=== PATIENT | female | born 1980 | race Caucasian/White ===

== ENCOUNTER 2020-02-07 20:22 | Emergency (ER) | payer MEDICAID ==
[2020-02-07 20:43] VITALS: BP 98/56; PULSE 106
--- NOTE | 2020-02-07 21:34 | EDM.PDOCBH ---
ED HPI GENERAL MEDICAL PROBLEM - General Chief Complaint: Behavioral/Psych Stated Complaint: TALKING STRANGELY Time Seen by Provider: 02/07/20 20:58 Source of Information: Reports: Patient, Significant Other (Commonlaw ) History Limitations: Reports: Altered Mental Status - History of Present Illness INITIAL COMMENTS - FREE TEXT/NARRATIVE: Ms. Wetzel is a very pleasant 39-year-old woman with a past medical history significant for anxiety, depression, and ADHD, who is now brought to the ED by her boyfriend (common-law of 15 years) for altered mental status. A pparently the patient came home and did not who he was, and started talking about one of her dogs. The patient reported to the triage nurse that she had taken 7 tablets of alprazolam 0.5 mg and alcohol. She tells me that she drove to a bar earlier today, had a couple of drinks, then took 5, not 7, tablets of alprazolam 0.5 mg. She states that she did so because she believes that her previous gastric bypass prevents her from absorbing the alprazolam, therefore she needs to take a larger quantity. She initially stated that she takes these large doses with the blessing of her prescriber, however, the pill bottle was present in the exam room with a label that reads 1 tablet up to 3 times a day as needed. The patient then acknowledged that her prescriber did not tell her to take more than one tablet at a time and that she did so on her own volition. When asked, the patient stated that while she drove to the bar, she was given a ride home by a friend that she met at the bar, and that her car is still at the bar, however, her boyfriend stated that, no, her car is in their driveway. She drove herself home. Both the patient and her boyfriend acknowledge that the patient drinks alcohol to excess in a binge pattern. The patient states that she has been psychiatrically hospitalized only once, when 16 years old, due to a suicide attempt by cutting her wrists. Here in the ED, the patient's initial BP is found to be mildly low at 98/55 with a mild tachycardia of 106 bpm. She is afebrile, saturating 100% on room air. Both the patient and her boyfriend tell me that she has not felt well over the past few days, and that she is spent both Friday and Friday, , in bed. Other than that, however, the patient denies recent fever, chills, sore throat, ear pain, nasal or sinus congestion, cough, dyspnea, chest pain, palpitations, nausea, vomiting, constipation, diarrhea, abdominal pain, urinary symptoms, recent weight gain or weight loss, recent bloody bowel movements or black bowel movements, recent joint aches, headaches, or rashes. The patient's PCP is ISRAEL Goncalves. Her Bariatric Surgeon is Dr. Fahad Sanz. - Related Data Allergies Allergy/AdvReac Type Severity Reaction Status Date / Time hydromorphone Allergy Itching Verified 02/07/20 20:44 Home Meds: Home Meds Cholecalciferol (Vitamin D3) [Vitamin D] 5,000 unit PO Q7D 01/29/16 [History] Cyanocobalamin (Vitamin B12) [Vitamin B12] 1,000 mcg SUBCUT Q21D 01/29/16 [History] Dextroamphetamine/Amphetamine [Adderall] 30 mg PO BID 01/29/16 [History] Ferrous Sulfate [Iron] 325 mg PO DAILY 01/29/16 [History] Sertraline HCl [Zoloft] 100 mg PO BID 01/29/16 [History] traMADol [Ultram] 100 mg PO TID 01/29/16 [History] ALPRAZolam [Xanax] 0.5 mg PO TID PRN 02/07/20 [History] Levothyroxine Sodium [Synthroid] 175 mcg PO DAILY 02/07/20 [History] Past Medical History HEENT History: Reports: Impaired Vision Neurological History: Reports: Brain Injury Psychiatric History: Reports: ADHD, Anxiety, Depression Endocrine/Metabolic History: Reports: Hypothyroidism, Obesity/BMI 30+ Hematologic History: Reports: Anemia, B12 Deficiency (due to gastric bypass) - Infectious Disease History Infectious Disease History: Reports: Chicken Pox - Past Surgical History HEENT Surgical History: Reports: Oral Surgery (dental extractions) GI Surgical History: Reports: Bariatric Procedure (gastric bypass 2002), Cholecystectomy (1999 or 2000) Female Surgical History: Reports: Section (x 2), D&C (x 1), Tubal Ligation Social & Family History - Family History Family Medical History: Noncontributory - Tobacco Use Smoking Status *Q: Current Every Day Smoker Years of Tobacco use: 12 Packs/Tins Daily: 0.5 - Caffeine Use Caffeine Use: Reports: Soda - Alcohol Use Alcohol Use History: Yes Alcohol Use Frequency: Binges - Recreational Drug Use Recreational Drug Use: Yes Drug Use in Last 12 Months: No Recreational Drug Type: Reports: Marijuana/Hashish (last smoked 2014) - Living Situation & Occupation Living situation: Reports: , with Significant Other (Common-law of 15 years) Occupation: Employed (Owns a nail salon) ED ROS GENERAL - Review of Systems Review Of Systems: Comprehensive ROS is negative, except as noted in HPI. Musculoskeletal: Reports: Back Pain (chronic) ED EXAM, BEHAVIORAL HEALTH - Physical Exam Exam: See Below Exam Limited By: No Limitations General Appearance: Alert, WD/WN, No Apparent Distress Eye Exam: Bilateral Eye: EOMI, Normal Inspection, PERRL Ears: Normal External Exam, Hearing Grossly Normal Nose: Normal Inspection Throat/Mouth: Normal Inspection, Normal Lips, Normal Voice, No Airway Compromise Head: Atraumatic, Normocephalic Neck: Normal Inspection, Full Range of Motion Respiratory/Chest: No Respiratory Distress, Lungs Clear, Normal Breath Sounds, No Accessory Muscle Use Cardiovascular: Normal Peripheral Pulses, Regular Rate, Rhythm, No Edema, No Gallop, No JVD, No Murmur, No Rub GI/Abdominal: Normal Bowel Sounds, Soft, Non-Tender, No Organomegaly, No Distention, No Abnormal Bruit, No Mass (Female) Exam: Deferred Rectal (Female) Exam: Deferred Back Exam: Normal Inspection, Full Range of Motion, NT Extremities: Normal Inspection, Normal Range of Motion, No Pedal Edema, Normal Capillary Refill Neurological: Alert, CN II-XII Intact, No Motor/Sensory Deficits, Oriented x 3 Psychiatric: Normal Affect Skin Exam: Warm, Dry, Intact, Normal color, No rash EKG INTERPRETATION EKG Date: 02/07/20 Time: 21:10 Rhythm: NSR Rate (Beats/Min): 99 [place]: Normal P-Wave: Enlarged (LAE) QRS: Normal ST-T: Normal QT: Normal Comparison: NA - No Prior EKG COURSE, BEHAVIORAL HEALTH COMP - Course Vital Signs: Last Vital Signs Temp 36.9 C 02/07/20 20:35 Pulse 106 H 02/07/20 20:35 Resp 16 02/07/20 20:35 BP 98/56 L 02/07/20 20:35 Pulse Ox 100 02/07/20 20:35 Orthostatic Blood Pressure [ 87/60 Standing] Orthostatic Blood Pressure [ 100/64 Supine] Orders, Labs, Meds: Active Orders 24 hr Category Date Time Status EKG Documentation Completion [RC] STAT Care 02/07/20 21:05 Active Orthostatic Vital Signs [RC] STAT Care 02/07/20 21:05 Active Laboratory Tests 02/07/20 02/07/20 02/07/20 Range/Units 21:20 21:20 21:20 WBC 6.34 (3.98-10.04) K/mm3 RBC 4.14 (3.98-5.22) M/mm3 Hgb 9.6 L D (11.2-15.7) gm/dl Hct 32.3 L (34.1-44.9) % MCV 78.0 L D (79.4-94.8) fl MCH 23.2 L (25.6-32.2) pg MCHC 29.7 L (32.2-35.5) g/dl RDW Std Deviation 50.0 H (36.4-46.3) fL Plt Count 423 H D (182-369) K/mm3 MPV 9.7 (9.4-12.3) fl Neutrophils % (Manual) 60 (40-60) % Band Neutrophils % 0 (0-10) % Lymphocytes % (Manual) 36 (20-40) % Atypical Lymphs % 0 % Monocytes % (Manual) 3 (2-10) % Eosinophils % (Manual) 1 (0.7-5.8) % Basophils % (Manual) 0 L (0.1-1.2) Platelet Estimate Adequate Polychromasia Few Hypochromasia 1+ slight Anisocytosis 1+ slight Microcytosis 1+ slight Ovalocytes 1+ slight RBC Morph Comment Not Reportable Sodium 138 (136-145) mEq/L Potassium 3.2 L (3.5-5.1) mEq/L Chloride 104 (98-107) mEq/L Carbon Dioxide 23 (21-32) mEq/L Anion Gap 14.2 (5-15) BUN 11 (7-18) mg/dL Creatinine 0.9 (0.55-1.02) mg/dL Est Cr Clr Drug Dosing 86.84 mL/min Estimated GFR (MDRD) > 60 (>60) mL/min BUN/Creatinine Ratio 12.2 L (14-18) Glucose 110 H (74-106) mg/dL Calcium 8.4 L (8.5-10.1) mg/dL Magnesium 1.8 (1.8-2.4) mg/dl Total Bilirubin 0.2 (0.2-1.0) mg/dL AST 41 H (15-37) U/L ALT 33 (14-59) U/L Alkaline Phosphatase 155 H (46-116) U/L Total Protein 7.6 (6.4-8.2) g/dl Albumin 3.5 (3.4-5.0) g/dl Globulin 4.1 gm/dL Albumin/Globulin Ratio 0.9 L (1-2) TSH 3rd Generation 19.563 H (0.358-3.74) uIU/mL Urine HCG, Qual (NEGATIVE) Salicylates 2.1 L (2.8-20) mg/dL Urine Opiates Screen (BYYLJU=549) Ur Buprenorphine Scrn (CUTOFF=10) Ur Oxycodone Screen (IZJ3SB=362) Urine Methadone Screen (BMKKUJ=588) Ur Propoxyphene Screen (YFSLOQ=628) Acetaminophen 0 L (10-30) ug/mL Ur Barbiturates Screen (WGYUKM=225) Ur Tricyclics Screen (VTVVMT=117) Ur Phencyclidine Scrn (CUTOFF=25) Ur Amphetamine Screen (ORXQBH=491) U Methamphetamines Scrn (YLOZFW=720) U Benzodiazepines Scrn (CBOIVQ=493) U Cocaine Metab Screen (EPHGHH=512) U Marijuana (THC) Screen (CUTOFF=50) Ethyl Alcohol 0.15 (0.00) gm% COVID-19 (ADAM) (NEGATIVE) 02/07/20 02/07/20 02/07/20 Range/Units 22:00 23:06 23:06 WBC (3.98-10.04) K/mm3 RBC (3.98-5.22) M/mm3 Hgb (11.2-15.7) gm/dl Hct (34.1-44.9) % MCV (79.4-94.8) fl MCH (25.6-32.2) pg MCHC (32.2-35.5) g/dl RDW Std Deviation (36.4-46.3) fL Plt Count (182-369) K/mm3 MPV (9.4-12.3) fl Neutrophils % (Manual) (40-60) % Band Neutrophils % (0-10) % Lymphocytes % (Manual) (20-40) % Atypical Lymphs % % Monocytes % (Manual) (2-10) % Eosinophils % (Manual) (0.7-5.8) % Basophils % (Manual) (0.1-1.2) Platelet Estimate Polychromasia Hypochromasia Anisocytosis Microcytosis Ovalocytes RBC Morph Comment Sodium (136-145) mEq/L Potassium (3.5-5.1) mEq/L Chloride (98-107) mEq/L Carbon Dioxide (21-32) mEq/L Anion Gap (5-15) BUN (7-18) mg/dL Creatinine (0.55-1.02) mg/dL Est Cr Clr Drug Dosing mL/min Estimated GFR (MDRD) (>60) mL/min BUN/Creatinine Ratio (14-18) Glucose (74-106) mg/dL Calcium (8.5-10.1) mg/dL Magnesium (1.8-2.4) mg/dl Total Bilirubin (0.2-1.0) mg/dL AST (15-37) U/L ALT (14-59) U/L Alkaline Phosphatase (46-116) U/L Total Protein (6.4-8.2) g/dl Albumin (3.4-5.0) g/dl Globulin gm/dL Albumin/Globulin Ratio (1-2) TSH 3rd Generation (0.358-3.74) uIU/mL Urine HCG, Qual Negative (NEGATIVE) Salicylates (2.8-20) mg/dL Urine Opiates Screen Negative (ISRKPQ=393) Ur Buprenorphine Scrn Negative (CUTOFF=10) Ur Oxycodone Screen Negative (OPH9VM=116) Urine Methadone Screen Negative (DLQWVC=769) Ur Propoxyphene Screen Negative (ZBFBGB=342) Acetaminophen (10-30) ug/mL Ur Barbiturates Screen Negative (BSJHZS=778) Ur Tricyclics Screen Negative (RMRQWC=586) Ur Phencyclidine Scrn Negative (CUTOFF=25) Ur Amphetamine Screen Presumptive positive H (EUIDDM=708) U Methamphetamines Scrn Negative (GWLMZV=760) U Benzodiazepines Scrn Presumptive positive H (ZXRRFW=020) U Cocaine Metab Screen Negative (SMOZMT=725) U Marijuana (THC) Screen Negative (CUTOFF=50) Ethyl Alcohol (0.00) gm% COVID-19 (ADAM) Negative (NEGATIVE) Medications Discontinued Medications Generic Name Dose Route Start Last Admin Trade Name Iliana PRN Reason Stop Dose Admin Lactated Ringer's 1,000 mls @ 999 mls/hr 02/07/20 22:19 02/07/20 22:25 Ringers, Lactated IV 02/07/20 23:19 999 mls/hr .BOLUS ONE Administration Potassium Chloride 40 meq 02/07/20 22:25 02/07/20 22:29 Klor-Con M20 PO 02/07/20 22:26 40 meq ONETIME ONE Administration Medical Clearance: 02/07/20 21:29 As above, the patient apparently drove herself to a bar earlier today, drank for a while, then took either 5 or 7 alprazolam 0.5 mg tablets before driving herself home. Once home, she did not recognize her common-law of 15 years, and was talking about one of her dogs. Here in the ED, patient is found to be mildly hypotensive and slightly tachycardic, and while she states that she does not remember much of what happened earlier today, she is able to provide a fairly thorough past medical and surgical history. Her physical exam is unremarkable. I have ordered a standard psychiatric medical clearance panel, along with orthostatics, and a test for the SARS-CoV-2 virus. 02/07/20 22:18 The patient is not orthostatic. Her CBC is remarkable for a H/H mildly depressed at 9.6 last 32.3, with platelets elevated at 423,000. The remainder of her CBC is unremarkable. Her CMP is remarkable for a potassium mildly depressed at 3.2, a blood glucose slightly elevated 110, and AST slightly elevated at 41 with an ALT normal at 33, and an alkaline phosphatase mildly elevated at 155, with the remainder of her CMP being unremarkable. Her magnesium level is within normal limits at 1.8. Her TSH is substantially elevated at 19.563. Her acetaminophen level is 0. Her salicylate level is within normal limits at 2.1. Her EtOH level is elevated at 0.15. The patient has not yet provided a urine sample for the urine drug screen and urine test. Her test for the SARS-CoV-2 virus has not yet resulted. Although the patient is not orthostatic, I believe she may benefit from a liter of IV fluid anyway. I have ordered 1 L of LR. I have also ordered 40 mEq of oral KCl. 02/07/20 23:22 The test for the SARS-CoV-2 virus has returned negative. 02/07/20 23:53 The patient's urine drug screen is positive for both amphetamines and benzodiazepines, and is otherwise negative. Her urine test is negative. The patient's altered mental status appears to be due to ingestion of alprazolam and alcohol. I do not see any evidence of suicidal or homicidal behavior, therefore I do not believe that the patient needs to be psychiatrically hospitalized. My plan at this time will be to keep the patient here in the ED overnight, and see how she looks and feels in the morning. Thea GRIFFITH will notify the patient's common-law of the plan. 02/08/20 01:57 Notified by Thea GRIFFITH that the patient told her that she is feeling much better and she would like to go home. I evaluated the patient. She is now completely lucid. I offered to keep her here in the ED overnight, but she would prefer to sleep at home, which is understandable. I will therefore discharge her. With respect to the patient's elevated TSH, she states that she is already on Synthroid, and that her dosage is being adjusted. Departure - Departure Time of Disposition: 01:58 Disposition: Home, Self-Care 01 Condition: Good Clinical Impression: Mild alprazolam abuse, Alcohol intoxication, Elevated TSH, Hypokalemia - Discharge Information *PRESCRIPTION DRUG MONITORING PROGRAM REVIEWED*: Not Applicable *COPY OF PRESCRIPTION DRUG MONITORING REPORT IN PATIENT GOLDEN: Not Applicable Instructions: Hypokalemia Referrals: Paula Corrales PA-C [Primary Care Provider] - Fahad Sanz MD [Physician] - Forms: ED Department Discharge Additional Instructions: You were seen in the emergency room for an altered mental status after drinking excessively and ingesting an excessive dose of alprazolam (Xanax). Work-up in the ER included blood work, a urine drug screen, a urine test, a test for the SARS-CoV-2 virus, positional blood pressure checks, and an ECG. Your work-up found your alcohol level to be significantly elevated at 0.15. For reference, that is just about twice the upper legal limit for driving. Your urine drug screen was positive for both amphetamine (from the amphetamine salts that you take), and benzodiazepines (from the Xanax that you consumed). Your potassium level was found to be mildly depressed at 3.2. You were given oral supplemental potassium in the ER, along with IV fluid. Your TSH was found to be significantly elevated at 19.563, however, you already have known hypothyroidism, currently under treatment. The remainder of your work-up was unremarkable. Based on your history, physical exam, and ER tests, it appears that your altered mental status was due to the combination of Xanax and alcohol. If controlling this type of behavior in the future becomes a problem, we strongly recommend that you seek professional help at [facility]: [address] [phone]. Follow-up with your PCP, ISRAEL Goncalves, as needed. If any other problems, please do not hesitate to return to the ER. Sepsis Event Note (ED) - Evaluation Sepsis Screening Result: No Definite Risk - Focused Exam Vital Signs: Vital Signs Temp Pulse Resp BP Pulse Ox 02/07/20 20:35 36.9 C 106 H 16 98/56 L 100 - My Orders Last 24 Hours: My Active Orders 02/07/20 21:05 EKG Documentation Completion [RC] STAT Orthostatic Vital Signs [RC] STAT - Assessment/Plan Last 24 Hours: My Active Orders 02/07/20 21:05 EKG Documentation Completion [RC] STAT Orthostatic Vital Signs [RC] STAT
[2020-02-07 21:57] LABS: ACETAMINOPHEN 0 ug/mL (10-30)
[2020-02-07] MEDS ORDERED: Lactated Ringers 1,000 ML IV ONE (22:19)
[2020-02-07] MEDS ORDERED: Potassium Chloride 20 MEQ Tab.ER PO ONE (22:25)
== END 2020-02-08 02:24 | disposition home or self-care (01) ==
LOC: EEVIPCON 20:22 → JD.ED 20:22
DX: E87.6 Hypokalemia (principal); F10.129 Alcohol abuse with intoxication, unspecified; F19.10 Other psychoactive substance abuse, uncomplicated; R94.6 Abnormal results of thyroid function studies; F41.9 Anxiety disorder, unspecified; F32.9 Major depressive disorder, single episode, unspecified; E03.9 Hypothyroidism, unspecified; E66.9 Obesity, unspecified; F90.9 Attention-deficit hyperactivity disorder, unspecified type; F17.210 Nicotine dependence, cigarettes, uncomplicated; Z98.890 Other specified postprocedural states; Z88.5 Allergy status to narcotic agent; Z79.899 Other long term (current) drug therapy; Z20.828 Contact with and (suspected) exposure to other viral communicable diseases; Z68.32 Body mass index [BMI] 32.0-32.9, adult
CPT/HCPCS: 36415; 80053; 80306; 80307; 81025; 83735; 84443; 85007; 85027; 87635; 93005; 96360; 99285; A9270; J7120; 93010; 99284; U0002

== ENCOUNTER 2021-08-21 14:27 | Emergency (ER) | payer MEDICAID ==
[2021-08-21 15:01] VITALS: BP 116/73; PULSE 102
[2021-08-21] MEDS: HYDROmorphone 1 MG/ML Syringe IM ONE (16:17)
[2021-08-21] MEDS: HYDROmorphone 0.5 MG/0.5 ML Syringe IM ONE (17:17)
== END 2021-08-21 17:20 | disposition home or self-care (01) ==
LOC: JD.ED 14:27
DX: S06.0X0A Concussion without loss of consciousness, initial encounter (principal); S62.654A Nondisplaced fracture of middle phalanx of right ring finger, initial encounter for closed fracture; S00.03XA Contusion of scalp, initial encounter; E03.9 Hypothyroidism, unspecified; E66.9 Obesity, unspecified; Z68.30 Body mass index [BMI] 30.0-30.9, adult; Z79.899 Other long term (current) drug therapy; Z88.5 Allergy status to narcotic agent; Z72.0 Tobacco use; W10.8XXA Fall (on) (from) other stairs and steps, initial encounter
CPT/HCPCS: 70450; 72125; 72220; 73130; 96372; 99284; J1170

== ENCOUNTER 2021-08-26 13:42 | Emergency (ER) | payer MEDICAID ==
[2021-08-26 13:55] VITALS: BP 123/79; PULSE 98
[2021-08-26] MEDS ORDERED: Acetaminophen 325 MG Tab PO ONE (15:24)
== END 2021-08-26 16:55 | disposition left against medical advice (07) ==
LOC: JD.ED 13:42
DX: S00.03XA Contusion of scalp, initial encounter (principal); S30.0XXA Contusion of lower back and pelvis, initial encounter; G44.209 Tension-type headache, unspecified, not intractable; E03.9 Hypothyroidism, unspecified; E66.9 Obesity, unspecified; Z68.30 Body mass index [BMI] 30.0-30.9, adult; Z88.5 Allergy status to narcotic agent; Z79.899 Other long term (current) drug therapy; Z72.0 Tobacco use; W22.09XA Striking against other stationary object, initial encounter
CPT/HCPCS: 70450; 72100; 99284; A9270